=== PATIENT | male | born 1945 | race Caucasian/White ===

== ENCOUNTER → 2018-10-05 12:08 | Outpatient (CLI) | payer MEDICARE, OTHER, SELFPAY ==
--- NOTE | 2018-10-05 | DI.RAD.S_ITS ---
PROCEDURE: FL BARIUM SWALLOW W SPEECH INDICATIONS: CHRONIC COUGH, ZENKER DIVERTICULA TECHNIQUE: Examination was conducted in conjunction with speech pathology per standard protocol. In the lateral projection, filming was performed of the patient swallowing. AP projection filming may also be performed with patient swallowing. COMPARISON: None. FINDINGS: Function: The oral preparatory phase appears normal, with proper containment. The subsequent oral propulsive phase, pharyngeal phase, and esophageal phase of swallowing also appear normal with all proffered substances. No laryngotracheal penetration or aspiration. No pathologic vallecular pooling. Morphology: No cricopharyngeal bar is identified. No cervical esophageal webs. No Zenker's diverticulum. No strictures. IMPRESSION: No aspiration. No Zenker diverticulum seen. Dictated by: Zacarias Coe M.D. on 10/05/2018 at 14:32 Approved by: Zacarias Coe M.D. on 10/05/2018 at 14:34
== END ==
PROVIDERS: Visit Provider Family Medicine
DX: R05 Cough (principal); K22.5 Diverticulum of esophagus, acquired
CPT/HCPCS: 74230; 92611

== ENCOUNTER → 2019-11-24 09:03 | Outpatient (CLI) | payer MEDICARE, OTHER, SELFPAY ==
--- NOTE | 2019-11-24 | DI.RAD.S_ITS ---
PROCEDURE: XR LUMBAR SPINE MIN 4V INDICATIONS: Pain in left hip TECHNIQUE: 4 views of the lumbar spine were acquired. COMPARISON: None. FINDINGS: Bones: 5 nonrib-bearing vertebrae are present. There is mild levoscoliotic bony alignment. No vertebral body compression fractures. No suspicious bony lesions. Note is made of a multilevel degenerative disc disease pattern from the thoracolumbar junction through the lumbosacral line with moderate disc height reduction and endplate osteophyte formation at all lumbar levels. There also is degenerative facet joint osteoarthritis that is mild at L3-4, and moderate to moderately severe at L4-5 and L5-S1. Soft tissues: Overlying bowel gas pattern is normal. No suspicious soft tissue calcifications. Oblique images: No pars defects. IMPRESSION: Generalized degenerative disc disease there is moderate in severity over the entire lumbosacral spine, without subluxation. Progressively greater facet osteoarthritis is present from L3-S1 with likelihood of significant spinal and foraminal stenosis at L4-5 and L5-S1. No compression fracture found. Mild levoscoliosis. Dictated by: Oscar Clark M.D. on 11/24/2019 at 10:14 Approved by: Oscar Clark M.D. on 11/24/2019 at 10:15
--- NOTE | 2019-11-24 | DI.RAD.S_ITS ---
PROCEDURE: XR HIP W PEL IF DONE BILAT 2V INDICATIONS: Pain in left hip TECHNIQUE: AP pelvis with lateral view(s) of the bilateral hip(s). COMPARISON: None. FINDINGS: Bones: No fractures or dislocations. Pelvic ring appears intact. No suspicious bony lesions. Mild symmetric hip joint osteoarthritis. Soft tissues: The visualized bowel gas pattern is normal. No suspicious soft tissue calcifications. IMPRESSION: Mild bilateral symmetric hip joint osteoarthritis comment no prior trauma found. Dictated by: Oscar Clark M.D. on 11/24/2019 at 10:13 Approved by: Oscar Clark M.D. on 11/24/2019 at 10:13
== END ==
PROVIDERS: PCP Family Medicine; Visit Provider Family Medicine
DX: M25.552 Pain in left hip (principal); M25.551 Pain in right hip; M16.0 Bilateral primary osteoarthritis of hip; M48.062 Spinal stenosis, lumbar region with neurogenic claudication; M47.816 Spondylosis without myelopathy or radiculopathy, lumbar region; M47.817 Spondylosis without myelopathy or radiculopathy, lumbosacral region; M51.35 Other intervertebral disc degeneration, thoracolumbar region; M51.36 Other intervertebral disc degeneration, lumbar region; M51.37 Other intervertebral disc degeneration, lumbosacral region; M41.9 Scoliosis, unspecified
CPT/HCPCS: 72110; 73521

== ENCOUNTER → 2019-12-13 10:18 | Outpatient (CLI) | payer MEDICARE, OTHER, SELFPAY ==
--- NOTE | 2019-12-13 10:22 | DI.MRI.S_ITS ---
PROCEDURE: MR LUMBAR SPINE WO CON INDICATIONS: Osteoporosis Screening Spinal Stenosis TECHNIQUE: Noncontrast sagittal T1 spin echo and T2 fast echo, sagittal STIR, axial T1 and T2 fast spin echo through the lumbar spine. In cases with scoliosis, additional coronal T2 fast spin echo may be performed. COMPARISON: [facility], CR, XR LUMBAR SPINE MIN 4V, 11/24/2019, 9:14. [facility], MR, L-SPINE WITHOUT CONTRAST, 06/25/2012, 9:12. FINDINGS: Image quality: Excellent. Alignment and Curvature: There is normal bony alignment. Bone Marrow: Marrow is of normal overall signal. No acute vertebral body compression fractures. Spinal Cord: Conus medullaris terminates at the L1 level. Visualized cord demonstrates normal signal and size. Paraspinous Soft Tissues: No paravertebral masses. T12-L1: No canal stenosis or foraminal stenosis. Mild facet hypertrophy. L1-L2: Severe chronic discogenic loss. Mild posterior disc plus osteophyte. Mild facet and ligament hypertrophy. No canal stenosis or foraminal stenosis. L2-L3: Progressive moderate to severe disc height loss. Diffuse posterior disc bulge. Progression of facet and ligament hypertrophy. Progression of canal stenosis, mild to moderate. Mild to moderate bilateral foraminal narrowing. L3-L4: Progression of disc loss, moderate to severe. Diffuse disc bulge. Facet and ligament hypertrophy. Progression of canal stenosis, moderate. Moderate right foraminal narrowing with mild flattening deformity upon the exiting right L3 nerve root. L4-L5: Mild disc loss. Moderate diffuse disc bulge. Facet and ligament hypertrophy. Progression of canal stenosis, moderate. Moderate bilateral foraminal narrowing with mild flattening deformity on the exiting bilateral L4 nerve roots. L5-S1: Progression of discogenic loss. Moderate to severe. Interval right hemilaminotomy with resolution of previous right paracentral disc protrusion. Mild canal stenosis secondary to disc bulge and facet and ligament hypertrophy. Mild right foraminal narrowing. Progression of left foraminal narrowing, moderate to severe, with flattening deformity on the exiting left L5 nerve root. IMPRESSION: 1. Right paracentral disc protrusion at L5-S1 no longer present. 2. Progression of diffuse degenerative change. 3. Progressive canal stenosis is mild to moderate at L2-L3, moderate at L3-L4 and L4-L5, and mild at L5-S1. 4. Bilateral foraminal narrowing as described above, including moderate right foraminal narrowing at L3-4, moderate bilateral foraminal narrowing at L4-L5, and moderate to severe left foraminal narrowing at L5-S1. Dictated by: Demarco Villeda M.D. on 12/13/2019 at 15:02 Approved by: Demarco Villeda M.D. on 12/13/2019 at 15:12
--- NOTE | 2019-12-13 10:24 | DI.US.S_ITS ---
PROCEDURE: US ABD AORTA ANEURYSM SCREEN INDICATIONS: SCREENING FOR ABDOMINAL AORTIC ANEURYSM TECHNIQUE: Real time scanning was performed of the aorta and iliac arteries, with image documentation. COMPARISON: [facility], MR, MR LUMBAR SPINE WO CON, 12/13/2019, 11:35. FINDINGS: Aorta: Proximal aortic diameter measures 1.9 cm. Mid-aorta measures 1.9 cm. Distal aortic diameter is 1.6 cm. Iliac arteries: Right common iliac artery measures 0.9 cm. Left common iliac artery measures 1.1 cm. IMPRESSION: Negative exam. No abdominal aortic aneurysm. Dictated by: Pardeep Payan M.D. on 12/13/2019 at 13:51 Approved by: Pardeep Payan M.D. on 12/13/2019 at 13:53
== END ==
PROVIDERS: PCP Family Medicine; Referring Provider Family Medicine; Visit Provider Family Medicine
DX: Z13.6 Encounter for screening for cardiovascular disorders (principal); Z13.820 Encounter for screening for osteoporosis; M85.852 Other specified disorders of bone density and structure, left thigh; M48.062 Spinal stenosis, lumbar region with neurogenic claudication; M48.07 Spinal stenosis, lumbosacral region; M47.816 Spondylosis without myelopathy or radiculopathy, lumbar region; Z87.891 Personal history of nicotine dependence
CPT/HCPCS: 72148; 76706; 77080

== ENCOUNTER → 2020-08-10 14:41 | Outpatient (CLI) | payer MEDICARE, OTHER, SELFPAY ==
--- NOTE | 2020-08-10 | DI.ECHO.S_ITS ---
[facility]---------+ [facility] +---------+ : : [address] : : : : [id number] : : : : Phone: [phone]+ Echocardiogram Report + + :Name: LINDA BURNS Study Date: 08/10/2020 Height: 69 in : :[facility] Weight: 167 lb: : Gender: Male BSA: 1.9 m2 : :: 1945 Age: 74 yrs BP: 90/58 mmHg: :Reason For Study: AI : : Performed By: Kalyan Astudillo : :Referring: CHITRA MCKEON D : + + Interpretation Summary The ejection fraction is estimated to be 60-65%. The left atrium is severely dilated. There is no Doppler evidence for an atrial septal defect. There is mild aortic valve sclerosis. There is mild aortic regurgitation. The right ventricular systolic pressure is estimated to be at least 19 mmHg based on an estimated right atrial pressure of 3 mm Hg. Procedure: A two-dimensional transthoracic echocardiogram with color flow and Doppler was performed. The study quality was technically good. There is no prior echocardiogram noted for this patient. The patient was in normal sinus rhythm during the exam. Left Ventricle: The left ventricle is normal in size. There is normal left ventricular wall thickness. The ejection fraction is estimated to be 60-65%. There are no focal wall motion abnormalities. Right Ventricle: The right ventricle is at the upper limits of normal in size. The right ventricular systolic function is normal. Atria: The left atrium is severely dilated. The right atrium is mildly dilated. There is no Doppler evidence for an atrial septal defect. Mitral Valve: The mitral valve is normal in structure and function. There is trace mitral regurgitation. Aortic Valve: The aortic valve is trileaflet. There is discrete nodular thickening of the right coronary cusp. There is mild aortic valve sclerosis. There is mild aortic regurgitation. Tricuspid Valve: The tricuspid valve is normal in structure and function. There is trace tricuspid regurgitation. The right ventricular systolic pressure is estimated to be at least 19 mmHg based on an estimated right atrial pressure of 3 mm Hg. Pulmonic Valve: The pulmonic valve is normal in structure and function. There is trace pulmonic regurgitation. Great Vessels: The aortic root is normal size. The ascending aorta is mildly enlarged. The pulmonary artery is normal size. The IVC is of normal diameter and collapses greater than 50% with a sniff. This suggests a low right atrial pressure of 3 mm Hg. Pericardium/ Pleura There is no pericardial effusion. There is no pleural effusion. MMode/2D Measurements & Calculations LVIDd: 5.1 cm LVOT diam: 2.3 cm LVIDs: 2.8 cm Ao root diam: 4.0 cm FS: 45.1 % asc Aorta Diam: 3.6 cm EPSS: 0.43 cm Ao Arch Diam (Prox Trans): 2.6 cm IVSd: 0.88 cm LVPWd: 0.84 cm LV sotelo. diameter/BSA (cm/m^2): 2.7 LV sys. diameter/BSA (cm/m^2): 1.5 LA dimension: 4.7 cm RA long axis: 6.4 cm LA A2 area: 28.1 cm2 RA area: 21.7 cm2 LA A4 area: 28.5 cm2 RA vol: 62.3 ml LA length (vol): 6.4 cm RA : 32.6 ml/m2 LA vol: 106.7 ml IVC diam: 1.4 cm LA vol index: 55.8 ml/m2 RVD1 (basal): 4.6 cm RVD2 (mid): 4.3 cm Doppler Measurements & Calculations Ao V2 max: 158.2 cm/sec LVOT Max Armand: 123.6 cm/sec Ao V2 mean: 120.6 cm/sec LV V1 max P.1 mmHg Ao max P.0 mmHg LV V1 VTI: 26.8 cm Ao mean P.3 mmHg SHARONA(I,D): 3.3 cm2 Ao V2 VTI: 33.1 cm SHARONA(V,D): 3.2 cm2 sev ratio: 0.81 SHARONA indexed to BSA (cm^2/m^2): 1.7 AI P1/2t: 793.8 msec AI dec slope: 176.6 cm/sec2 MV E max armand: 84.8 cm/sec TR max armand: 197.0 cm/sec MV A max armand: 57.2 cm/sec TR max P.5 mmHg MV E/A: 1.5 PA V2 max: 94.6 cm/sec Med Peak E' Armand: 6.8 cm/sec PA V2 mean: 73.8 cm/sec E/E' med: 12.4 PA mean P.3 mmHg Lat Peak E' Armand: 9.2 cm/sec PA pr(Accel): 43.0 mmHg E/E' lat: 9.3 E/e' average: 10.8 MV dec time: 0.24 sec SV(LVOT): 108.7 ml Reading Physician:11:21 AM
== END ==
PROVIDERS: PCP Family Medicine; Referring Provider Family Medicine; Visit Provider Family Medicine
DX: I35.1 Nonrheumatic aortic (valve) insufficiency (principal); I77.89 Other specified disorders of arteries and arterioles
CPT/HCPCS: 93306

== ENCOUNTER → 2021-08-16 10:56 | Outpatient (CLI) | payer MEDICARE, OTHER, SELFPAY ==
[2021-08-16 19:15] LABS: Alanine Aminotransferase 31 IU/L (<50); Albumin 4.4 g/dL (3.5-5.0); Albumin Globulin Ratio 1.7 (1.0-2.8); Alkaline Phosphatase 64 U/L (38-126); Aspartate Aminotransferase 32 IU/L (17-59); BUN Creatinine Ratio 19.6 (6-22); Bilirubin Total 0.9 mg/dL (0.2-1.3); Blood Urea Nitrogen 20 mg/dL (9-20); Calcium 9.8 mg/dL (8.4-10.2); Carbon Dioxide 28 mmol/L (22-32); Chloride 101 mmol/L (98-107); Cholesterol 130 mg/dL (140-199); Estimated Glomerular Filt Rate > 60.0 mL/min (>60); Globulin 2.6 g/dL (1.7-4.1); Glucose 90 mg/dL (80-110); HDL Cholesterol 44 mg/dL (40-60); HEMOLYSIS < 15 (0-50); LDL Cholesterol Calculated 70 mg/dL (<100); Sodium 138 mmol/L (137-145); Triglycerides 80 mg/dL (35-150)
[2021-08-16 19:41] LABS: Prostate Specific Antigen Scrn 1.26 ng/mL (0.1-4.0)
== END ==
PROVIDERS: PCP Family Medicine; Visit Provider Family Medicine
DX: Z12.5 Encounter for screening for malignant neoplasm of prostate (principal); L98.9 Disorder of the skin and subcutaneous tissue, unspecified; E78.5 Hyperlipidemia, unspecified; N40.0 Benign prostatic hyperplasia without lower urinary tract symptoms
CPT/HCPCS: 80053; 80061; G0103

== ENCOUNTER → 2021-11-21 09:28 | Outpatient (CLI) | payer MEDICARE, OTHER, SELFPAY ==
--- NOTE | 2021-11-21 09:30 | DI.MRI.S_ITS ---
PROCEDURE: MR LUMBAR SPINE WO CON INDICATIONS: Spinal stenosis, lumbar region with neurogenic claudication TECHNIQUE: Noncontrast sagittal T1 spin echo and T2 fast echo, sagittal STIR, axial T1 and T2 fast spin echo through the lumbar spine. In cases with scoliosis, additional coronal T2 fast spin echo may be performed. [facility], MR, MR LUMBAR SPINE WO CON, 12/13/2019, 11:35. g FINDINGS: Image quality: Excellent. Alignment and Curvature: There is normal bony alignment. There is approximately 15? of convex left lumbar spine scoliosis. Bone Marrow: Modic type 2 reactive endplate changes noted adjacent to the L1-L2, L2-L3, L3-L4, L4-L5 and L5-S1 discs. Schmorl's nodes noted in the inferior L2 endplate, the inferior L3 L plate in the superior L4 endplate. No acute vertebral body compression fractures. Spinal Cord: Conus medullaris terminates at the L1 level. Visualized cord demonstrates normal signal and size. Paraspinous Soft Tissues: No paravertebral masses. T12-L1: Loss of disc signal. Minimal, diffuse disc bulge. Mild bilateral facet hypertrophy. Mild narrowing of the central canal. No neural foraminal narrowing. No neural compression. L1-L2: Loss of disc signal and height. Mild, diffuse disc bulge. Mild bilateral facet hypertrophy. Mild narrowing of the central canal. Mild bilateral neural foraminal narrowing. No neural compression. L2-L3: Loss of disc signal and height. Moderate, diffuse disc bulge. Mild bilateral facet hypertrophy. Mild to moderate narrowing of the central canal. Moderate right and [id number] left neural foraminal narrowing. No neural compression. L3-L4: Loss of disc signal and height. Moderate, diffuse disc bulge. [id number] bilateral facet hypertrophy. Mild ligamentum flavum hypertrophy. Moderate narrowing of the central canal. Moderate to severe right and moderate left neural foraminal narrowing. No neural compression. Fissure noted in the posterior annulus. L4-L5: Loss of disc signal and height. Moderate, diffuse disc bulge. Moderate right and mild left facet hypertrophy. Mild ligamentum flavum hypertrophy. Moderate narrowing of the central canal. Moderate to severe bilateral neural foraminal narrowing. No neural compression. L5-S1: Loss of disc signal and height. Mild, diffuse disc bulge. Mild right and moderate left facet hypertrophy. Mild to moderate narrowing of the central canal. Mild to moderate right and severe left neural foraminal narrowing with compression of the exiting left L5 nerve root. IMPRESSION: 1. Multilevel degenerative disc disease. 2. Multilevel facet arthropathy. 3. No severe central canal narrowing. 4. Severe left L5-S1 neural foraminal narrowing with compression of the exiting left L5 nerve root. 5. Convex left scoliosis. Dictated by: Rubia Mckeon MD, PhD on 11/21/2021 at 14:51 Approved by: Rubia Mckeon MD, PhD on 11/21/2021 at 15:31
--- NOTE | 2021-11-21 09:30 | DI.RAD.S_ITS ---
PROCEDURE: XR HIP W PEL IF DONE CLARA MIN 4V INDICATIONS: Progressive lower back pain, history of lumbar stenosis TECHNIQUE: AP pelvis with lateral view(s) of the bilateral hip(s). COMPARISON: [facility], , XR HIP W PEL IF DONE BILAT 2V, 11/24/2019, 9:14. FINDINGS: Bones: No fractures or dislocations. Pelvic ring appears intact. No suspicious bony lesions. Mild bilateral hip degenerative change. Soft tissues: The visualized bowel gas pattern is normal. No suspicious soft tissue calcifications. IMPRESSION: Mild bilateral hip degenerative change. No evidence acute bony abnormality of the pelvis and bilateral hips. If clinical suspicion and/or symptoms persist, further assessment with repeat plain films, or advanced imaging (e.g., CT, MRI, or bone scan) may be helpful for further assessment. Dictated by: Demarco Villeda M.D. on 11/21/2021 at 10:00 Approved by: Demarco Villeda M.D. on 11/21/2021 at 10:01
== END ==
PROVIDERS: PCP Family Medicine; Referring Provider Family Medicine; Visit Provider Family Medicine
DX: M48.062 Spinal stenosis, lumbar region with neurogenic claudication (principal); M48.07 Spinal stenosis, lumbosacral region; M51.36 Other intervertebral disc degeneration, lumbar region; M47.816 Spondylosis without myelopathy or radiculopathy, lumbar region; M47.817 Spondylosis without myelopathy or radiculopathy, lumbosacral region; M41.86 Other forms of scoliosis, lumbar region; N40.1 Benign prostatic hyperplasia with lower urinary tract symptoms; N13.8 Other obstructive and reflux uropathy; M25.551 Pain in right hip; M25.552 Pain in left hip; G89.29 Other chronic pain
CPT/HCPCS: 51798; 72148; 73522; 81002; 99214

== ENCOUNTER → 2021-12-11 07:35 | Outpatient (CLI) | payer MEDICARE, OTHER, SELFPAY ==
[2021-12-11 19:54] LABS: COVID-19 CEPHEID PCR (VTM/NP) Negative (Negative)
== END ==
PROVIDERS: PCP Family Medicine; Visit Provider Family Medicine
DX: Z20.822 Contact with and (suspected) exposure to COVID-19 (principal)
CPT/HCPCS: C9803; U0003; U0005

== ENCOUNTER 2021-12-13 11:50 | Outpatient (CLI) | payer MEDICARE, OTHER, SELFPAY ==
[2021-12-13] VITALS (7 sets, daily range): BP systolic 114–126; BP diastolic 67–78; PULSE 54–66; RESP 13–20; O2SAT 93–96
--- NOTE | 2021-12-13 11:52 | DI.RAD.S_ITS ---
PROCEDURE: PAIN L INTERLAMINAR/CAUDAL INJ INDICATIONS: SPONDYLOSIS COMPARISON: None. FINDINGS: Fluoroscopic spot filming was performed to verify placement of spinal needles at the right L4-L5 interlaminar space. level(s), as labeled on the films. Appropriate location(s) of the needle tip(s) in the posterior epidural space was confirmed by injection of iodinated contrast. IMPRESSION: Access needle at the right L4-L5 epidural space via translaminar approach.. Dictated by: Rubia Mckeon MD, PhD on 12/13/2021 at 15:59 Approved by: Rubia Mckeon MD, PhD on 12/13/2021 at 16:01
[2021-12-13] MEDS: fentaNYL 100 MCG/2 ML INJ 50 MCG IV (13:55)
[2021-12-13] MEDS: BUPIVACAINE 0.25% (PF) VIAL 2 ML INJ (13:55)
[2021-12-13] MEDS: MIDAZOLAM 5 MG/5 ML VIAL IV (13:55)
[2021-12-13] MEDS: IOPAMIDOL 15 ML VIAL 3 ML INJ (13:55)
[2021-12-13] MEDS: DEXAMETHASONE 10 MG/ML VIAL 20 MG INJ (14:01)
[2021-12-13] MEDS: BETAMETHASONE 30 MG/5 ML MDV 6 MG INJ (14:01)
--- NOTE | 2021-12-13 14:12 | P.PCN_ITS ---
Date/Time/Diagnoses Date of procedure: 12/13/21 Time of procedure: 14:12 Pre-procedure diagnosis: 1. HNP WITH RADICULAR FEATURES, 2. MULTILEVEL CENTRAL STENOSIS This procedure is found to meet the Governor's proclamation 20-24.2 regarding non urgent procedures. This patient meets multiple criteria for the procedure including continuing or worsening of significant or severe pain, combined with further deterioration of the patient's condition or overall health as well as delay in treatment would be expected to result in less positive ultimate medical outcome. Therefore the decision to perform the procedure in an outpatient hospital setting is found to be in accordance with guidelines of the proclamation. Post-procedure diagnosis: same Procedure Notes Procedure: 1. FLUOROSCOPICALLY GUIDED CONTRAST CONTROLLED INTERLAMINAR EPIDURAL STEROID INJECTION -L4/5 Indications: Vipul is referred by Dr.s Hernandez and Ramiro for treatment of Bilateral Foraminal Stenosis R>L LE symptoms. Physician: Tyson Lucero Total Fluoroscopy time (seconds): 7 Total sedation minutes: 11 Complications: none Procedure in detail & Post-procedure care: FINDINGS Multilevel Central Spinal Stenosis with Nerve Root Compression DESCRIPTION OF PROCEDURE Fluoroscopically guided, contrast-controlled L4/5 translaminar epidural steroid injection. Following review of allergy and review of potential side effects and complications, including, but not necessarily limited to, infection, allergic reaction, local tissue breakdown, temporary as well as permanent nerve injury, paralysis, stroke and possible , the patient indicated that the patient understood and agreed to proceed. An informed consent document was signed by the patient, witnessed by a nurse, and placed in the patient's chart. Additionally, other treatment options including modalities, medications, and physical therapy were reviewed with the patient. After review of previous anaesthesic history and IV conscious sedation the patient was deemed safe to proceed with today?s procedure with IV conscious sedation as ASA class II designation. Safety time-out was performed to confirm patient ID, procedure to be performed and site of procedure. IV sedation was accomplished with a combination of 2mg of Versed and 50mcg of Fentanyl was administered by the RN after DO order, titrated to patient comfort during the course of the procedure while the patient remained responsive to all verbal commands In the prone position, following sterile prep and drape of the lumbar region, the L4/5 translaminar space was identified fluoroscopically. The skin was anesthetized via a 25-gauge, 1.5inch needle with 1% lidocaine solution. At this point, a 22-gauge short bevel spinal needle was atraumatically introduced and advanced under fluoroscopic guidance into the region of the L4/5 translaminar space. Depth was confirmed on lateral view. Radiological data, including multiple fluoroscopic views of the lumbar spine, reveal a spinal needle at the L4/5 translaminar space. Lateral views then show placement of the needle in the epidural space. Subsequent views show contrast material flowing superiorly and inferiorly in the epidural space. No vascular or intrathecal uptake is observed. At this point, using loss of resistance technique with saline and air, the epidural space was entered. This was confirmed following negative aspiration with injection of approximately 1.5cc of Isovue 200, showing excellent epidural flow without vascular or intrathecal uptake. At this point, 1cc of 1% lidocaine solution combined with 3cc or 20mg of dexamethasone and 6mg betamethasone was injected without incident. The patient tolerated the procedure well without signs or symptoms of complications prior to transfer to the recovery area continued monitoring without incident. The patient was then transferred to the recovery area where they were observed for an appropriate period of time after the injection. The patient reported a VAS score of 6 prior to the procedure and a post- procedure VAS of 0. POST OP INSTRUCTIONS The patient was provided a Pain Log to continue to record their response to the target-specific procedure prior to follow-up visit with their referring physician. Additionally, specific post-injection care instructions and a contact number to our office were provided if concerns arise regarding possible complications associated with the procedure are suspected.
== END 2021-12-13 14:30 | disposition home or self-care (01) ==
PROVIDERS: PCP Family Medicine; Referring Provider Physical Medicine & Rehabilitation; Visit Provider Physical Medicine & Rehabilitation
DX: M51.16 Intervertebral disc disorders with radiculopathy, lumbar region (principal); M48.061 Spinal stenosis, lumbar region without neurogenic claudication; N40.1 Benign prostatic hyperplasia with lower urinary tract symptoms; N13.8 Other obstructive and reflux uropathy
CPT/HCPCS: 52000; 62323; 76872; 81002; 99152; 99214; J0702; J1100; J2250; J3010

== ENCOUNTER → 2022-10-11 08:59 | Outpatient (CLI) | payer MEDICARE, OTHER, SELFPAY ==
[2022-10-11 19:50] LABS: Add Manual Diff / Slide Review NO; Basophils Absolute Auto 0 /uL (0-100); Basophils Percent Auto 0.2 % (0-2); Eosinophils Absolute Auto 0 /uL (0-450); Eosinophils Percent Auto 0.3 % (2-4); Hematocrit 46.5 % (41-53); Hemoglobin 15.7 g/dL (13.5-17.5); Lymphocytes Absolute Auto 1000 /uL (1100-4500); Lymphocytes Percent Auto 11.7 % (25-40); Mean Corpuscular HGB Conc 33.7 % (30-36); Mean Corpuscular Hemoglobin 30.6 PG (26-34); Mean Corpuscular Volume 90.9 fL (80-100); Monocytes Absolute Auto 700 /uL (0-900); Monocytes Percent Auto 7.8 % (3-14); Neutrophils Absolute Auto 6800 /uL (1500-7000); Platelet Count 179 X10^3/uL (150-400); Red Blood Cell Count 5.11 X10^6/uL (4.5-5.9); Red Cell Distribution Width 13.6 % (11.6-14.8); White Blood Cell Count 8.5 X10^3/uL (4.5-11.0)
[2022-10-11 19:57] LABS: Alanine Aminotransferase 25 IU/L (<50); Albumin 4.4 g/dL (3.5-5.0); Albumin Globulin Ratio 1.4 (1.0-2.8); Alkaline Phosphatase 86 U/L (38-126); Aspartate Aminotransferase 24 IU/L (17-59); BUN Creatinine Ratio 20.2 (6-22); Bilirubin Total 1.8 mg/dL (0.2-1.3); Blood Urea Nitrogen 17 mg/dL (9-20); Calcium 9.6 mg/dL (8.4-10.2); Carbon Dioxide 28 mmol/L (22-32); Chloride 97 mmol/L (98-107); Cholesterol 111 mg/dL (140-199); Estimated Glomerular Filt Rate > 60 mL/min (>60); Globulin 3.1 g/dL (1.7-4.1); Glucose 110 mg/dL (80-110); HDL Cholesterol 43 mg/dL (40-60); HEMOLYSIS < 15 (0-50); LDL Cholesterol Calculated 58 mg/dL (<100); Potassium 3.9 mmol/L (3.4-5.1); Sodium 138 mmol/L (137-145); Total Protein 7.5 g/dL (6.3-8.2); Triglycerides 51 mg/dL (35-150)
== END ==
PROVIDERS: PCP Family Medicine; Visit Provider Family Medicine
DX: I51.7 Cardiomegaly (principal); E78.2 Mixed hyperlipidemia; I10 Essential (primary) hypertension; I35.1 Nonrheumatic aortic (valve) insufficiency; N13.8 Other obstructive and reflux uropathy; N40.1 Benign prostatic hyperplasia with lower urinary tract symptoms
CPT/HCPCS: 80053; 80061; 85025

== ENCOUNTER → 2023-01-01 11:15 | Outpatient (CLI) | payer MEDICARE, OTHER, SELFPAY ==
[2023-01-01 19:14] LABS: Alanine Aminotransferase 27 IU/L (<50); Albumin 4.1 g/dL (3.5-5.0); Albumin Globulin Ratio 1.4 (1.0-2.8); Alkaline Phosphatase 78 U/L (38-126); Aspartate Aminotransferase 27 IU/L (17-59); BUN Creatinine Ratio 24.7 (6-22); Bilirubin Total 1.2 mg/dL (0.2-1.3); Blood Urea Nitrogen 22 mg/dL (9-20); Calcium 9.3 mg/dL (8.4-10.2); Carbon Dioxide 31 mmol/L (22-32); Chloride 99 mmol/L (98-107); Estimated Glomerular Filt Rate > 60 mL/min (>60); Glucose 97 mg/dL (80-110); HEMOLYSIS < 15 (0-50); Potassium 4.2 mmol/L (3.4-5.1); Sodium 137 mmol/L (137-145); Total Protein 7.1 g/dL (6.3-8.2)
[2023-01-01 19:44] LABS: Prostate Specific Antigen 2.64 ng/mL (0.10-4.00)
== END ==
PROVIDERS: PCP Family Medicine; Visit Provider Specialist
DX: N13.8 Other obstructive and reflux uropathy (principal); N40.1 Benign prostatic hyperplasia with lower urinary tract symptoms; R17 Unspecified jaundice
CPT/HCPCS: 80053; 84153

== ENCOUNTER → 2023-01-29 09:14 | Outpatient (CLI) | payer MEDICARE, OTHER, SELFPAY ==
--- NOTE | 2023-01-29 | DI.MRI.S_ITS ---
PROCEDURE: MR PELIS WO/W CON INDICATIONS: elevated PSA TECHNIQUE: Coronal HASTE, axial T1 FSE with fat saturation, 3-plane nonbreath-hold T2 FSE. After the administration of contrast, dynamic axial, delayed axial and coronal VIBE or 2-D FLASH with fat saturation through the pelvis. Optional diffusion weighted imaging and ADC may be performed. COMPARISON: None. FINDINGS: Image quality: Diffusion weighted and dynamic contrast enhanced images are diagnostic. Prostate: Gland size is 4.8 x 4.0 x 5.1 cm; ellipsoid gland volume is 51 mL. No PI-RADS 3-5 lesions. Genitourinary system: Bladder wall thickness is normal. Distal ureters are non distended. Bowel and peritoneum: No pathologic free pelvic fluid. Inferior colon and small bowel loops are normal in caliber. Colonic diverticulosis without evidence of diverticulitis. Nodes and vessels: No pelvic or inguinal adenopathy by size criteria. Iliac vessels are normal in caliber. Soft tissues: Small right inguinal hernia containing fat. Bones: Marrow demonstrates normal overall signal, without lesions to suggest metastases. IMPRESSION: No PI-RADS 3 through 5 lesions. Dictated by: Syed Pickett M.D. on 01/29/2023 at 12:16 Approved by: Syed Pickett M.D. on 01/29/2023 at 12:19
[2023-01-31 11:34] LABS: PSA, Total 0.9 ng/mL (0.0-4.0)
== END ==
PROVIDERS: PCP Family Medicine; Referring Provider Specialist; Visit Provider Specialist
DX: R97.20 Elevated prostate specific antigen [PSA]
CPT/HCPCS: 36415; 72197; 84153; 84154; A9579

== ENCOUNTER → 2023-01-29 09:15 | Outpatient (CLI) | payer MEDICARE, OTHER, SELFPAY ==
--- NOTE | 2023-01-29 09:16 | DI.MRI.S_ITS ---
PROCEDURE: MR LUMBAR SPINE WO CON INDICATIONS: neurogenic claudication TECHNIQUE: Noncontrast sagittal T1 spin echo and T2 fast echo, sagittal STIR, and T2 fast spin echo through the lumbar spine. In cases with scoliosis, additional coronal T2 fast spin echo may be performed. COMPARISON: [facility], MR, MR LUMBAR SPINE WO CON, 11/21/2021, 13:24. FINDINGS: Image quality: Excellent. Alignment and Curvature: There is normal bony alignment. Bone Marrow: Degenerative endplate changes. L4 Schmorl's node Spinal Cord: Conus medullaris terminates at the L1 level. Visualized cord demonstrates normal signal and size. Paraspinous Soft Tissues: No paravertebral masses. T12-L1: Normal appearance. L1-L2: Disc space narrowing and circumferential disc bulge with mild central stenosis. No foraminal stenosis L2-L3: Disc space narrowing and circumferential disc bulge present. Hypertrophic facet joints results in [id number] central stenosis. Moderate bilateral foraminal stenosis L3-L4: Disc space narrowing with circumferential disc bulge and hypertrophic facet joints results in moderate central stenosis. Moderate right and mild left foraminal stenosis L4-L5: Disc space narrowing with circumferential disc bulge and hypertrophic facet joints combined result in moderate central stenosis. Severe right and left foraminal stenosis L5-S1: Disc space narrowing and circumferential disc bulge with mild central stenosis. Mild right and moderate left foraminal stenosis IMPRESSION: Multilevel degenerative disc disease and arthropathy results in varying degrees of central and foraminal stenosis including moderate central and severe bilateral foraminal stenosis at L4-5 Approved by: Phani Fierro M.D. on 01/29/2023 at 11:03
== END ==
PROVIDERS: PCP Family Medicine; Referring Provider Family Medicine; Visit Provider Family Medicine
DX: M48.062 Spinal stenosis, lumbar region with neurogenic claudication (principal); M51.36 Other intervertebral disc degeneration, lumbar region; M51.37 Other intervertebral disc degeneration, lumbosacral region; M47.816 Spondylosis without myelopathy or radiculopathy, lumbar region; R97.20 Elevated prostate specific antigen [PSA]
CPT/HCPCS: 36415; 72148; 72197; 84153; 84154; A9579

== ENCOUNTER → 2024-02-26 08:52 | Outpatient (CLI) | payer MEDICARE, OTHER, SELFPAY ==
[2024-02-26 19:29] LABS: Add Manual Diff / Slide Review NO; Basophils Absolute Auto 0 /uL (0-100); Basophils Percent Auto 0.4 % (0-2); Eosinophils Absolute Auto 300 /uL (0-450); Eosinophils Percent Auto 4.4 % (2-4); Hematocrit 48.9 % (41-53); Hemoglobin 16.2 g/dL (13.5-17.5); Lymphocytes Absolute Auto 1800 /uL (1100-4500); Lymphocytes Percent Auto 26.3 % (25-40); Mean Corpuscular HGB Conc 33.1 % (30-36); Mean Corpuscular Volume 93.6 fL (80-100); Monocytes Absolute Auto 800 /uL (0-900); Monocytes Percent Auto 11.4 % (3-14); Neutrophils Absolute Auto 3900 /uL (1500-7000); Neutrophils Percent Auto 57.5 % (50-75); Platelet Count 183 X10^3/uL (150-400); Red Blood Cell Count 5.22 X10^6/uL (4.5-5.9); Red Cell Distribution Width 14.2 % (11.6-14.8); White Blood Cell Count 6.8 X10^3/uL (4.5-11.0)
[2024-02-26 19:41] LABS: Blood Urea Nitrogen 20 mg/dL (9-20); Calcium 9.9 mg/dL (8.4-10.2); Carbon Dioxide 28 mmol/L (22-32); Chloride 103 mmol/L (98-107); Cholesterol 110 mg/dL (140-199); Estimated Glomerular Filt Rate > 60 mL/min (>60); Glucose 92 mg/dL (80-110); HDL Cholesterol 43 mg/dL (40-60); HEMOLYSIS < 15 (0-50); LDL Cholesterol Calculated 54 mg/dL (<100); Potassium 4.1 mmol/L (3.4-5.1); Sodium 138 mmol/L (137-145); Triglycerides 65 mg/dL (35-150)
[2024-02-26 20:05] LABS: Prostate Specific Antigen Scrn 1.66 ng/mL (0.1-4.0)
== END ==
PROVIDERS: PCP Family Medicine; Visit Provider Family Medicine
DX: R97.20 Elevated prostate specific antigen [PSA] (principal); I10 Essential (primary) hypertension; Z12.5 Encounter for screening for malignant neoplasm of prostate; R17 Unspecified jaundice; K21.9 Gastro-esophageal reflux disease without esophagitis; I51.7 Cardiomegaly; I35.1 Nonrheumatic aortic (valve) insufficiency; E78.2 Mixed hyperlipidemia; N40.1 Benign prostatic hyperplasia with lower urinary tract symptoms; N13.8 Other obstructive and reflux uropathy
CPT/HCPCS: 80048; 80061; 85025; G0103

== ENCOUNTER → 2025-05-03 10:24 | Outpatient (CLI) | payer MEDICARE, OTHER, SELFPAY ==
[2025-05-03 19:16] LABS: Add Manual Diff / Slide Review NO; Hematocrit 46.8 % (41-53); Hemoglobin 16.0 g/dL (13.5-17.5); Lymphocytes Absolute Auto 1700 /uL (1100-4500); Mean Corpuscular HGB Conc 34.1 % (30-36); Mean Corpuscular Hemoglobin 32.1 PG (26-34); Mean Corpuscular Volume 94.1 fL (80-100); Platelet Count 168 X10^3/uL (150-400)
[2025-05-03 19:30] LABS: Alanine Aminotransferase 29 IU/L (<50); Albumin 4.6 g/dL (3.5-5.0); Albumin Globulin Ratio 1.6 (1.0-2.8); Alkaline Phosphatase 87 U/L (38-126); Blood Urea Nitrogen 16 mg/dL (9-20); Calcium 9.9 mg/dL (8.4-10.2); Carbon Dioxide 29 mmol/L (22-32); Chloride 103 mmol/L (98-107); Cholesterol 117 mg/dL (140-199); Estimated Glomerular Filt Rate > 60 mL/min (>60); Globulin 2.8 g/dL (1.7-4.1); Glucose 93 mg/dL (70-99); HDL Cholesterol 41 mg/dL (40-60); HEMOLYSIS < 15 (0-50); Potassium 4.2 mmol/L (3.4-5.1); Sodium 139 mmol/L (137-145); Total Protein 7.4 g/dL (6.3-8.2); Triglycerides 105 mg/dL (35-150)
[2025-05-03 20:04] LABS: Prostate Specific Antigen 1.15 ng/mL (0.10-4.00)
== END ==
PROVIDERS: PCP Family Medicine; Visit Provider Family Medicine
DX: R97.20 Elevated prostate specific antigen [PSA] (principal); F33.42 Major depressive disorder, recurrent, in full remission; I10 Essential (primary) hypertension; N40.1 Benign prostatic hyperplasia with lower urinary tract symptoms; N13.8 Other obstructive and reflux uropathy; R17 Unspecified jaundice; M70.61 Trochanteric bursitis, right hip; I51.7 Cardiomegaly; M70.62 Trochanteric bursitis, left hip; E78.2 Mixed hyperlipidemia; K21.9 Gastro-esophageal reflux disease without esophagitis
CPT/HCPCS: 80053; 80061; 84153; 85025